=== PATIENT | male | born 1950 | race Caucasian/White ===

== ENCOUNTER → 2018-02-08 08:15 | Outpatient (CLI) | payer MEDICARE, BC, SELFPAY ==
--- NOTE | 2018-02-08 08:00 | PROSBIL_PTH ---
PATIENT: LISSETTE MESA LOC: [facility] U#:[id number] AGE/SX: 75/M ROOM: RE02/08/[address]: Dr. Nathan Garay MD : 1950 BED: DIS: SPEC #: [id number] RECD: 02/09/18 09:25 STATUS: JAMES HERIBERTO #: [id number] DAVID: 02/08/18 08:[address]: Nathan Garay DEPT: SURGICAL PATHOLOGY RECD BY: Alaina Elder ENTERED: 02/09/18 09:27 SP TYPE: PROST BX PIPE DR: Dr. Pollo Gordon MD Tissues: A - PROSTATE RIGHT B - PROSTATE RIGHT C - PROSTATE RIGHT D - PROSTATE LEFT E - PROSTATE LEFT F - PROSTATE LEFT Procedures: PROSTATE BX HEADER OPERATION: Prostate biopsy PRE-OP DIAGNOSIS: Elevated PSA TISSUE SUBMITTED: A - Right apex, B - Right mid, C - Right base, D - Left apex, E - Left mid, F - Left base MICROSCOPIC DIAGNOSIS A. Right prostate, apex, core biopsy: Prostatic tissue, negative for malignancy. Focal mild chronic inflammation. B. Right prostate, mid, core biopsy: Focal high-grade prostatic intraepithelial neoplasia (HGPIN). Focal acute and chronic inflammation. C. Right prostate, base, core biopsy: Prostatic tissue, negative for malignancy. Focal acute and chronic inflammation. D. Left prostate, apex, core biopsy: Prostatic tissue, negative for malignancy. E. Left prostate, mid, core biopsy: Prostatic tissue, negative for malignancy. F. Left prostate, base, core biopsy: Prostatic tissue, negative for malignancy. SJ:jeanine 02/10/18 MICROSCOPIC DESCRIPTION Slides are reviewed. GROSS DESCRIPTION A - Received is one container designated prostate, right apex. The specimen consists of two elongated fragments of light baker-white soft tissue measuring 1.2 and 1.5 cm in length and 0.1 cm in diameter. The specimen is totally submitted in one cassette. B - Received is one container designated prostate, right mid. The specimen consists of two elongated fragments of light baker-white soft tissue each measuring 1.5 cm in length and 0.1 cm in diameter. The specimen is totally submitted in one cassette. C - Received is one container designated prostate, right base. The specimen consists of two elongated fragments of light baker-white soft tissue each measuring 1.5 cm in length and 0.1 cm in diameter. The specimen is totally submitted in one cassette. D - Received is one container designated prostate, left apex. The specimen consists of two elongated fragments of light baker-white soft tissue each measuring 1.2 and 0.1 cm in length and 0.1 cm in diameter. The specimen is totally submitted in one cassette. E - Received is one container designated prostate, left mid. The specimen consists of one elongated fragment of light baker-white soft tissue measuring 1.2 cm in length and 0.1 cm in diameter. Also received are three smaller fragments of tissue measuring 0.2 and 0.4 cm in length and 0.1 cm in diameter. The specimen is totally submitted in one cassette. F - Received is one container designated prostate, left base. The specimen consists of three elongated fragments of light baker-white soft tissue measuring 0.3 to 1.2 cm in length and 0.1 cm in diameter. The specimen is totally submitted in one cassette. / SJ:rg 02/09/18 TC:5 CPT: G0146 ADDENDUM ADDENDUM ADDENDUM ADDENDUM ADDENDUM ADDENDUM ADDENDUM ADDENDUM ADDENDUM ADDENDUM ADDENDUM ADDENDUM ADDENDUM ADDENDUM 10/30/2020 09:31 ADDENDUM 10/30/2020 09:31 ADDENDUM 10/30/2020 09:31 ADDENDUM 10/30/2020 09:31 ADDENDUM 10/30/2020 09:31 This addendum is added to incorporate an outside pathology consultation report. The case was examined at [facility] (#[id number]) and the following diagnosis was rendered. A. Right prostate, apex, core biopsy: Benign prostate tissue. B. Right prostate, mid, core biopsy: Focal high-grade prostatic intraepithelial neoplasia. C. Right prostate, base, core biopsy: Benign prostate tissue. D. Left prostate, apex, core biopsy: Benign prostate tissue. E. Left prostate, mid, core biopsy: Benign prostate tissue. F. Left prostate, base, core biopsy: Benign prostate tissue. Please see complete above mentioned consultation report in EMR
== END ==
PROVIDERS: Family Provider Family Medicine; PCP Family Medicine; Visit Provider Urology
DX: R97.20 Elevated prostate specific antigen [PSA] (principal)
CPT/HCPCS: 88305; G0416

== ENCOUNTER → 2018-08-23 10:17 | Outpatient (CLI) | payer MEDICARE, BC, SELFPAY ==
[2018-08-23 11:44] LABS: PSA,Total- Diagnostic 7.71 ng/mL (0.0-4.0)
[2018-08-24 11:03] LABS: PSA, Free 1.14 ng/mL; PSA, Free % 17.8 % (.); PSA, Total Ultrasensitive 6.4 ng/mL (0.0-4.0)
== END ==
PROVIDERS: Family Provider Family Medicine; PCP Family Medicine; Referring Provider Urology; Visit Provider Urology
DX: R97.20 Elevated prostate specific antigen [PSA] (principal)
CPT/HCPCS: 36415; 84153; 84154

== ENCOUNTER → 2019-09-12 09:34 | Outpatient (CLI) | payer MEDICARE, BC, SELFPAY ==
[2019-09-12 11:04] LABS: PSA,Total- Diagnostic 7.14 ng/mL (0.0-4.0)
== END ==
PROVIDERS: Family Provider Family Medicine; PCP Family Medicine; Referring Provider Urology; Visit Provider Urology
DX: R97.20 Elevated prostate specific antigen [PSA] (principal)
CPT/HCPCS: 36415; 84153

== ENCOUNTER 2019-10-21 05:24 | Day surgery (SDC) | payer MEDICARE, BC, SELFPAY ==
[2019-10-20 07:58] VITALS: BP 140/86; PULSE 65; RESP 16; TEMP 36.3; O2SAT 95; BMI 34.2
--- NOTE | 2019-10-20 08:14 | SDCEKG_ITS ---
Test Reason : Blood Pressure : / mmHG Vent. Rate : 056 BPM Atrial Rate : 056 BPM P-R Int : 164 ms QRS Dur : 082 ms QT Int : 406 ms P-R-T Axes : 006 009 043 degrees QTc Int : 391 ms Sinus bradycardia Otherwise normal ECG Confirmed by FRANCISCO GILMORE, MONA ([id number]), clinical editor PINO OLIVO ([id number]) on 10/21/2019 1:17:27 PM Referred By: Nathan Garay Confirmed By:ATILIO SINGH MD
[2019-10-20 08:44] LABS: Hematocrit 42.3 % (40-54); Hemoglobin 13.9 g/dL (13.0-16.5); Mean Corp Hgb Conc 32.9 g/dL (32-36); Mean Corpuscular Volume 94.4 fL (80-94); Mean Platelet Vol. 8.6 fl (6.2-12.0); Platelet Count 254 K/mm3 (150-450); RBC Distribution Width CV 14.2 % (11.6-14.6); RBC Distribution Width SD 48.8 fl (35.1-43.9); Red Blood Count 4.48 M/mm3 (4.6-6.2); White Blood Count 6.3 K/mm3 (4.4-11.0)
[2019-10-21] VITALS (7 sets, daily range): BP systolic 128–184; BP diastolic 82–99; PULSE 62–71; RESP 14–18; TEMP 36.1–36.6; O2SAT 91–98; BMI 33.7
[2019-10-21] MEDS: Lactated Ringers 1,000 ML 100 ML IV ×3 (06:36→11:05)
[2019-10-21] MEDS: Cefazolin 2 GM in 0.9% Normal Saline 100 ML IV (07:30)
--- NOTE | 2019-10-21 07:30 | BLB_PTH ---
PATIENT: LISSETTE MESA LOC: [facility] U#:[id number] AGE/SX: 69/M ROOM: RE10/21/[address]: Dr. Nathan Garay MD : 1950 BED: DIS: 10/21/2019 SPEC #: [id number] RECD: 10/21/19 09:49 STATUS: JAMES RECorbin #: [id number] DAVID: 10/21/19 07:[address]: Nathan Garay DEPT: SURGICAL PATHOLOGY RECD BY: Chino Molina ENTERED: 10/21/19 12:02 SP TYPE: TURB OTHR DR: Dr. Pollo Gordon MD Tissues: Urinary bladder, NOS Procedures: Surgery Specimen Level V HEADER OPERATION: Cysto, transurethral resection bladder, Olympus PRE-OP DIAGNOSIS: Neoplasm of bladder; asymptomatic microscopic hematuria; benign hyperplasia, elevated PSA TISSUE SUBMITTED: Bladder tumor MICROSCOPIC DIAGNOSIS Bladder tumor, TUR: Urothelial carcinoma. See cancer summary below. 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 Muscularis propria invasion presence: Muscularis propria (detrusor muscle) is present and free of tumor. Lymphovascular invasion: Not identified Tumor extension: The tumor is suspicious for invasion into the lamina propria (subepithelial connective tissue). See comment. Additional pathologic findings: Acute and chronic inflammation and cautery artifact. The above summary is in compliance with [employer] (CAP) Cancer Protocols Checklist and [place] [employer] Committee on Cancer (AJCC), Staging Manual, 8th Ed. COMMENT The area suspicious for invasion of tumor showed marked procedure related (cautery) artifact. Case has been reviewed in consultation with Dr. Mancini who concurs with the above diagnosis. IDC:AM MICROSCOPIC DESCRIPTION Slides are reviewed. GROSS DESCRIPTION Received in fixative is one container labeled with the patient's name and designated bladder tumor. The specimen consists of multiple irregular and friable fragments of pink-baker soft tissue that in aggregate measure 2.5 x 2 x 0.2 cm. The specimen is totally submitted in one cassette. / AM:jeanine 10/21/19 TC:0 CPT: 08481
--- NOTE | 2019-10-21 07:32 | PCM.DC.URO ---
Discharge Diet: Light diet - advance as tolerated Discharge Activity: Return to Normal Activity Call your doctor if your incision/area has: Continuous Slow Oozing Call your doctor if you observe: Fever of 101 or Higher Suture Line Care: Avoid Pulling/Pushing, Avoid Pinching/Bending Instructions: Treating Bladder Cancer: TUR (Transurethral Resection), Understanding Bladder Cancer Allergies/Adverse Reactions: Allergies Penicillins [PCN] Allergy (Verified 10/20/19 07:53) Unknown Medications to take at Discharge Atorvastatin Calcium [Lipitor] 40 mg PO QHS 10/20/19 Bacillus Coagulans [Probiotic] 1 ea PO DAILY 10/20/19 Cinnamon Bark [Cinnamon] 1,000 mg PO DAILY 10/20/19 Famotidine [Pepcid] 20 mg PO DAILY 10/20/19 Folic Acid 1 mg PO DAILY 10/20/19 Methotrexate 20 mg PO Q7D 10/20/19 Multivitamin [Daily Vitamin Formula] 1 ea PO DAILY 10/20/19 [place]-3/Dha/Epa/Fish Oil [[place] 3 500 Softgel] 1 ea PO DAILY 10/20/19 Ciprofloxacin [Cipro] 500 mg PO BID #14 tab 10/21/19 Hydrocodone/Acetaminophen [[place] 5-325 Tablet] 1 each PO Q4H PRN PRN #14 tablet 10/21/19 The following prescriptions were given: Ciprofloxacin [Cipro] 500 mg PO BID #14 tab Transmission Status: Pending to [facility] Hydrocodone/Acetaminophen [[place] 5-325 Tablet] 1 each PO Q4H PRN PRN #14 tablet PRN Reason: Pain Score 1-5/10 Transmission Status: Sent to [facility] Primary Care Physician: Pollo Gordon MD [Primary Care Provider] - Test Results: Test results from this visit will be discussed in further detail at your follow-up appointment, if applicable. Please Follow Up With: Nathan Garay MD When: in 2 weeks, please call to make an appointment.
--- NOTE | 2019-10-21 08:29 | OP.PCM_ITS ---
Report of Operation Date of Procedure: 10/21/19 Pre-Operative Diagnosis: Large bladder tumor in the dome of the bladder di fficult location Post-Operative Diagnosis: Same Surgery/Procedure Performed:: Transurethral resection of a large bladder tumor and instillation of mitomycin-C Description of Surgical Findings:: 69-year-old male with a history of smoking and had microscopic hematuria cystoscopy was done demonstrated a tumor up in the dome of the bladder tumor measured about 3.5 very close to 4 cm in size fairly large tumor in the dome of the bladder. Appeared to be a invasive tumor probably would lamina propria invasion did not appear to be a muscle invasive tumor. Today we did do a complete resection of the tumor and instillation of mitomycin-C. Instead the risk of the resection is perforation the bladder injury to the bladder failure to resect the entire tumor bleeding and infection and the risk of anesthesia all questions were answered and he signed the consent form . 69-year-old male was taken back to the operating with smooth induction of general anesthesia he was placed supine on the table and then in dorsolithotomy position we made the leg sure the legs were padded properly in stirrups. The penis and testicles were prepped and draped in usual sterile fashion, I first went into the bladder with a 21 Jordanian rigid cystourethroscope the meatus was normal the entire urethra was normal the sphincter was intact the prostate had some mild bilateral hypertrophy but no significant obstruction inside the bladder identified the trigone at the identified the right ureter orifice and the left ureteral orifice both of these were uninvolved by tumor I then searched the posterior wall right wall left wall anterior wall and then up in the dome of the bladder there was a large 3.5 x 4 cm tumor and also there was a satellite tumor next this large tumor up high in the dome of the bladder. I removed the cystoscope I went back in with a 24 Jordanian noncontinuous flow Olympus resectoscope using the medium size loop I did bend the loop in order to reach the tumor at the put a lot of pressure in the patient's abdomen to push the tumor down into my resectoscope I started resecting the lower part of the tumor working my way up to the middle part of the tumor as I resected let air bubbles were forming and could not see the whole resection site so then I removed the resectoscope went back in with the cystoscope put on suction suction out the air and then looked and saw that there was still more tumor and still the satellite tumor still need to be resected. So then went back in with the resectoscope and and then use a continuous flow resectoscope this way I could irrigate also suction neck inspection of the bubbles in the dome of the bladder continued do the resection very carefully took quite some time to resect this tumor because is up in the dome of the bladder had a little bladder pressure on the patient's abdomen to get the tumor down into the resection field finally got the major tumor all resected and I cauterized the resection base then I had the reach the satellite tumor that was even further high up in the dome this required a lot of pressure pushing down on the abdomen reaching real high then she was able to get this tumor resected after resecting this and I made sure I cauterized entire area all the tumor chips were then evacuated out of the bladder and sent off as a specimen all cut up little specimens. Took a photograph of the tumor before and after resection to document. And then placed a drain the bladder made sure that there was no bleeding placed the catheter in the bladder and placed mitomycin-C into the bladder 40 mg in 40 cc of mitomycin-C was placed into the bladder for instillation dwell he will hold this 1 hour in the PACU. Cystoscope was removed the bladder was drained mitomycin-C was placed and patient anesthetic was versed he was taken back to the PACU in good condition after discharge we will follow-up in the office in about 2 weeks. Type of Anesthesia:: General Specimen's removed: bladder tumor chips Drains: none - Admit VTE Documentation VTE Present on Admission: No VTE Mechan Device Prophylaxis: SCD's
== END 2019-10-21 12:26 | disposition home or self-care (01) ==
LOC: SDC 05:25 → AC 05:25
PROVIDERS: Anesthesiology; Family Provider Family Medicine; PCP Family Medicine; Referring Provider Urology; Visit Provider Urology
PROC: 0TBB8ZZ Excision of Bladder, Via Natural or Artificial Opening Endoscopic (ICD-10-PCS; CPT 52240; principal; 2019-10-21 07:20)
DX: C67.1 Malignant neoplasm of dome of bladder (principal); N40.0 Benign prostatic hyperplasia without lower urinary tract symptoms; K21.9 Gastro-esophageal reflux disease without esophagitis; E78.00 Pure hypercholesterolemia, unspecified; E66.9 Obesity, unspecified; Z68.32 Body mass index [BMI] 32.0-32.9, adult; Z87.442 Personal history of urinary calculi; Z87.891 Personal history of nicotine dependence; Z79.899 Other long term (current) drug therapy
CPT/HCPCS: 00912; 52240; 53899; 85027; 88307; 93005; J7120; J2405; J3490; J9280

== ENCOUNTER → 2020-01-12 | Outpatient (CLI) | payer MEDICARE, SELFPAY ==
[2019-10-21 06:15] VITALS: BMI 33.7
== END | disposition home or self-care (01) ==
LOC: LABSPEC 15:27
PROVIDERS: PCP Family Medicine; Referring Provider Urology; Visit Provider Urology
DX: R30.0 Dysuria (principal)
CPT/HCPCS: 87086

== ENCOUNTER 2020-01-18 08:30 | Day surgery (SDC) | payer MEDICARE, BC, SELFPAY ==
[2019-10-21 06:15] VITALS: BMI 33.7
[2020-01-16 11:08] VITALS: BMI 33.7
--- NOTE | 2020-01-18 | BLB_PTH ---
PATIENT: LISSETTE MESA [place] [facility] [place][id number] AGE/SX: 69/M ROOM: RE01/18/[address]: Dr. Nathan Garay MD : 1950 BED: DIS: 01/18/2020 SPEC #: [id number] RECD: 01/18/20 13:16 STATUS: JAMES HERIBERTO #: [id number] DAVID: 01/18/20 00:[address]: Nathan Garay DEPT: SURGICAL PATHOLOGY RECD BY: Camron Peres ENTERED: 01/19/20 09:03 SP TYPE: TURB OTHR DR: Dr. Pollo Gordon MD Tissues: Urinary bladder, NOS Procedures: Surgery Specimen Level V HEADER OPERATION: Cysto, transurethral resection bladder, Olympus PRE-OP DIAGNOSIS: History bladder CA TISSUE SUBMITTED: Bladder tumor tissue MICROSCOPIC DIAGNOSIS Urinary bladder tumor, TUR: Focal granulation with associated acute and chronic inflammation. Abundant necrotic cellular debris with associated acute inflammation and with calcific change. See comment. AM:jeanine 01/20/20 COMMENT Viable tumor is not present in the specimen. Clinical correlation is suggested. Reference is made to the patient's previous urinary bladder TUR from 10/24/19 ([id number]) in which high-grade urothelial carcinoma was identified. Case has been reviewed in consultation with Dr. Kearney who concurs with the above diagnosis. IDC:EVELIN MICROSCOPIC DESCRIPTION Slides are reviewed. GROSS DESCRIPTION Received in fixative is one container labeled with the patient's name and designated bladder tumor tissue. The specimen consists of multiple irregular fragments of baker-brown soft tissue that in aggregate measure 2.5 x 2 x 0.3 cm. The entire specimen is submitted in one cassette. / EVELIN:jeanine 01/19/20 TC:2 CPT: 47596
--- NOTE | 2020-01-18 08:43 | EKG12_ITS ---
Test Reason : PRE-OP Blood Pressure : / mmHG Vent. Rate : 070 BPM Atrial Rate : 070 BPM P-R Int : 148 ms QRS Dur : 080 ms QT Int : 388 ms P-R-T Axes : 014 010 048 degrees QTc Int : 419 ms Normal sinus rhythm Normal ECG When compared with ECG of 20-OCT-2019 08:24, No significant change was found Confirmed by FRANCISCO GILMORE, MONA ([id number]), image editor JASWANT AQUINO ([id number]) on 01/20/2020 9:43:29 AM Referred By: Nathan Garay Confirmed By:ATILIO SINGH MD
[2020-01-18 08:55] VITALS: BP 139/88; PULSE 75; RESP 16; TEMP 36.8; O2SAT 95; BMI 31.9
[2020-01-18 09:09] LABS: Hematocrit 37.1 % (40-54); Hemoglobin 12.4 g/dL (13.0-16.5); Mean Corp Hgb Conc 33.4 g/dL (32-36); Mean Corpuscular Hgb 31.9 pg (27.0-32.0); Mean Corpuscular Volume 95.4 fL (80-94); Mean Platelet Vol. 8.3 fl (6.2-12.0); Platelet Count 178 K/mm3 (150-450); RBC Distribution Width CV 14.6 % (11.6-14.6); RBC Distribution Width SD 50.3 fl (35.1-43.9); Red Blood Count 3.89 M/mm3 (4.6-6.2); White Blood Count 5.2 K/mm3 (4.4-11.0)
[2020-01-18] MEDS: Lactated Ringers 1,000 ML 100 ML IV ×2 (09:14→12:42)
[2020-01-18] MEDS: Cefazolin 2 GM in 0.9% Normal Saline 100 ML IV (11:16)
--- NOTE | 2020-01-18 12:17 | HP.PCM_ITS ---
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 He completed the resection and 6 weeks of mitomycin-C treatment still having significant symptoms so we did a cystoscopy demonstrated what appeared to be a poorly healing area up in the dome of the bladder with original resection a lot of calcification deposits and poor healing this was concerning for either persistent disease or just poor healing. So today when taken back for re-resection of the area will set off the tissue for pathology. Also probably will do a CAT scan to further evaluate the bladder to make sure there is no deep tumor that I cannot resect. Past Medical History Allergies Penicillins [PCN] Allergy (Verified 01/16/20 11:03) Unknown aspirin Adverse Reaction (Verified 01/16/20 11:03) PT UNSURE OF REACTION Home Medications: Ambulatory Orders Medication Instructions Recorded Atorvastatin Calcium [Lipitor] 40 mg PO QHS 10/20/19 Bacillus Coagulans [Probiotic] 1 ea PO DAILY 10/20/19 Cinnamon Bark [Cinnamon] 1,000 mg PO DAILY 10/20/19 Famotidine [Pepcid] 20 mg PO DAILY PRN 10/20/19 Folic Acid 1 mg PO DAILY 10/20/19 Methotrexate 20 mg PO Q7D 10/20/19 Multivitamin [Daily Vitamin 1 ea PO DAILY 10/20/19 Formula] [place]-3/Dha/Epa/Fish Oil [[place] 3 1 ea PO DAILY 10/20/19 500 Softgel] Surgical History: no surgical history Smoking Status: Former smoker Review of Systems Constitutional: Denies: Chills, Fever, Weight Change HEENT: Denies: Head Aches, Sinus Congestion, Sinus Drainage Cardiovascular: Denies: Chest Pain, Palpitations Respiratory: Denies: Cough, Shortness of breath at rest, Sputum production Gastrointestinal: Denies: Abdominal Pain, Nausea, Vomiting Genitourinary: Denies: Dysuria Musculoskeletal: Denies: Joint Pain, Joint Tenderness Skin: Denies: Rash, Wounds Neurological: Denies: Numbness, Tingling, Focal weakness Psychiatric: Denies: Anxiety, Depression, Homicidal Ideations, Suicidal Ideations Hematologic/ Lymphatic: Denies: Easy Bruising, Easy Bleeding VTE Information - Inpt Only VTE Present on Admission: No VTE Mechan Device Prophylaxis: SCD's - Physical Exam Vitals/I&O's: Vital Signs Temp Pulse Resp BP Pulse Ox 98.2 F 75 16 139/88 H 95 01/18/20 08:55 01/18/20 08:55 01/18/20 08:55 01/18/20 08:55 01/18/20 08:55 Oxygen Delivery Method Room Air Weight: 101.06 kg Body Mass Index (BMI) 31.9 Intake and Output for Last 24 Hours 01/16/20 01/17/20 01/18/20 23:59 23:59 23:59 Intake Total 110 / 110 Balance 110 / 110 General: Alert, Oriented x3, Cooperative HEENT: Atraumatic, PERRLA, EOMI, Normocephalic Neck: Supple, No JVD, Negative Carotid Bruits Lungs: Clear to auscultation, Normal air movement Cardiovascular: Regular rate, No murmurs Abdomen: Bowel Sounds Present, Soft, Non Tender Extremities: No edema, Capillary Refill Less than 3 Seconds Skin: No rashes, No breakdown Musculoskeletal: No Tenderness to Palpation of Joints or Extremities Neurological: Cranial nerves II-XII grossly intact Psych/Mental Status: Normal Affect, Appropriate Laboratory Results 01/18/20 09:04: WBC 5.2, RBC 3.89 L, Hgb 12.4 L, Hct 37.1 L, MCV 95.4 H, MCH 31.9, MCHC 33.4, RDW Std Deviation 50.3 H, RDW Coeff of Samantha 14.6, Plt Count 178, MPV 8.3 Current Medications Lactated Ringer's () 1,000 mls @ 100 mls/hr IV .Q10H [facility] Last Admin: 01/18/20 09:14 Dose: 100 mls/hr Documented by: Assessment/Plan 69-year-old male with bladder cancer newly diagnosed in October status post resection with invasive urothelial carcinoma invading into the T1 layer status post treatment with mitomycin-C, comes back with a poorly healing area in the bladder is concerned perhaps recurrence of disease he did have high-grade disease with carcinoma in situ so we will proceed with a reresection of the area today under anesthesia will send off the tissue for pathology. Essential Procedure Criteria Procedure Essential: Yes Criteria Note: On 12/27/2019 the [place] Department of Health ([facility]) Public Order signed by [facility] Director Cathie Corbin M.D., regarding the Management of Non- Essential Surgeries and Procedures for the purpose of preserving Personal Protective Equipment (PPE) and critical hospital capacity and resources within [place] went into effect as of 12/28/2019 at 5:00PM. According to the [facility] Public Order: This action will remain in full force and effect until the State of Emergency declared by the Governor no longer exists or the Director of the [facility] rescinds or modifies this Order.. This [facility] order stated all non-essential or elective surgeries and procedures that utilize PPE should be delayed unless there is undue risk to the current or future health of a patient. After reviewing the aforementioned [facility] Public Order and the patients clinical case, I have determined that the scheduled procedure meets the criteria to go forward. Risk to Patient if Procedure Delayed: Risk of metastasis or progression of staging
--- NOTE | 2020-01-18 12:23 | PCM.DC.URO ---
Discharge Diet: Light diet - advance as tolerated Discharge Activity: Return to Normal Activity Call your doctor if your incision/area has: Sudden Increased Bleeding Call your doctor if you observe: Fever of 101 or Higher Suture Line Care: Avoid Pulling/Pushing, Avoid Pinching/Bending Allergies/Adverse Reactions: Allergies Penicillins [PCN] Allergy (Verified 01/16/20 11:03) Unknown aspirin Adverse Reaction (Verified 01/16/20 11:03) PT UNSURE OF REACTION Medications to take at Discharge Atorvastatin Calcium [Lipitor] 40 mg PO QHS 10/20/19 Bacillus Coagulans [Probiotic] 1 ea PO DAILY 10/20/19 Cinnamon Bark [Cinnamon] 1,000 mg PO DAILY 10/20/19 Famotidine [Pepcid] 20 mg PO DAILY PRN 10/20/19 Folic Acid 1 mg PO DAILY 10/20/19 Methotrexate 20 mg PO Q7D 10/20/19 Multivitamin [Daily Vitamin Formula] 1 ea PO DAILY 10/20/19 [place]-3/Dha/Epa/Fish Oil [[place] 3 500 Softgel] 1 ea PO DAILY 10/20/19 Ciprofloxacin [Cipro] 500 mg PO BID #14 tab 01/18/20 Hydrocodone/Acetaminophen [[place] 5-325 Tablet] 1 each PO Q4H PRN PRN 7 Days #14 tablet 01/18/20 Oxybutynin Chloride [Oxybutynin Chloride ER] 10 mg PO DAILY #30 tab.er.24 01/18/20 The following prescriptions were given: Ciprofloxacin [Cipro] 500 mg PO BID #14 tab Transmission Status: Pending to [facility] Hydrocodone/Acetaminophen [[place] 5-325 Tablet] 1 each PO Q4H PRN PRN 7 Days #14 tablet PRN Reason: Pain Score 1-10/10 Transmission Status: Sent to [facility] Oxybutynin Chloride [Oxybutynin Chloride ER] 10 mg PO DAILY #30 tab.er.24 Transmission Status: Pending to [facility] Primary Care Physician: Pollo Gordon MD [Primary Care Provider] - Test Results: Test results from this visit will be discussed in further detail at your follow-up appointment, if applicable. Please Follow Up With: Nathan Garay MD When: please call to make Video Appointment Follow up in 10 days
--- NOTE | 2020-01-18 12:27 | OP.PCM_ITS ---
Report of Operation Date of Procedure: 01/18/20 Pre-Operative Diagnosis: Invasive bladder cancer Post-Operative Diagnosis: Same Surgery/Procedure Performed:: Transurethral resection of bladder cancer large Description of Surgical Findings:: The 69-year-old male who was found to have bladder cancer earlier this past year he had invasive cancer with invasion into the lamina propria layer and also carcinoma in situ. He completed a resection which was at that point followed with a complete resection. And then he completed 6 weeks of mitomycin-C therapy. He came to the office because he was having a lot of difficulty with frequency urgency and pain in his bladder so on cystoscopy in the office was found to have a necrotic area in the dome of the bladder that is poorly healing with calcifications. Certainly concerning for recurrence or progression of disease. So again taken back to surgery today for reresection. Patient was taken back to the operating room at the smooth induction of anesthesia he was placed supine on the table, the penis and testicles are prepped and draped in usual sterile fashion, went into the bladder with a 21 [place] rigid cystourethroscope the bladder was identified the trigone was identified left and right ureteral orifice was normal up in the dome of the bladder there was a poorly healing area circumferential nature with yellow calcifications throughout the area that was healing. I then switched over to the Instacart resectoscope and used a cold loop to first scrape off these necrotic areas and dysmorphic calcifications. These were sent off as a specimen I then switched over to the resectoscope loop with continuous irrigation and did a reresection of the area getting tissue and this was sent off as the tissue line of the tissue appeared to be necrotic in nature but there was also some healthy tissue that was sent off. There is no perforation of the bladder. The area in the dome of the bladder just appear to be either poorly healing or there was a concern for recurrence. At the end of the resection of the large area in the dome of the bladder about 5 cm x 3 cm in size I then made sure that there was no bleeding obtain hemostasis with cautery and then drained the bladder and taken back to the PACU in good condition plan is to review the pathology report and also can repeat a CAT scan of the abdomen pelvis with IV and oral contrast to further evaluate the bladder to make sure that there is no masses in the bladder certainly it is possible he could have persistent disease he did have very high- grade disease on original resection and even though he is completed chemotherapy he may have progression we may have to consider further more aggressive treatment. This was discussed with his family and and his and he was extubated taken back to PACU in good condition and will see him back in the office to review the CAT scan and review the tissue report by video conference. Type of Anesthesia:: General Drains: none - Admit VTE Documentation VTE Present on Admission: No VTE Mechan Device Prophylaxis: SCD's
[2020-01-18 12:31] VITALS: BP 139/88; BP 154/86; PULSE 78; RESP 16; TEMP 36.6; O2SAT 92
[2020-01-18] MEDS: Ketorolac 15 MG/ML Vial IV (12:43)
[2020-01-18 12:45] VITALS: BP 139/88; BP 171/87; PULSE 68; RESP 17; O2SAT 93
[2020-01-18 12:59] VITALS: BP 139/88; BP 156/88; PULSE 69; RESP 16; TEMP 36.4; O2SAT 97
[2020-01-18 15:15] VITALS: BP 139/88; BP 163/85; PULSE 75; RESP 16; TEMP 36.4; O2SAT 98
== END 2020-01-18 15:20 | disposition home or self-care (01) ==
LOC: SDC 08:33 → AC 08:33
PROVIDERS: Anesthesiology; PCP Family Medicine; Referring Provider Urology; Visit Provider Urology
PROC: 0TBB8ZZ Excision of Bladder, Via Natural or Artificial Opening Endoscopic (ICD-10-PCS; CPT 52240; principal; 2020-01-18 10:40)
DX: N30.00 Acute cystitis without hematuria (principal); N30.20 Other chronic cystitis without hematuria; C67.1 Malignant neoplasm of dome of bladder; K21.9 Gastro-esophageal reflux disease without esophagitis; E78.00 Pure hypercholesterolemia, unspecified; Z79.899 Other long term (current) drug therapy; Z87.891 Personal history of nicotine dependence
CPT/HCPCS: 52240; 36415; 85027; 88307; 93005; J7120; J2405

== ENCOUNTER → 2020-01-24 | Outpatient (CLI) | payer MEDICARE, BC, SELFPAY ==
[2020-01-18 08:55] VITALS: BMI 31.9
--- NOTE | 2020-01-24 08:16 | CT_ITS ---
STUDY: CT ABDOMEN AND PELVIS WITHOUT CONTRAST REASON FOR EXAM: Male, 69 years old. BLADDER CANCER FOLLOW-UP. OCT 2019 REMOVAL OF BLADDER CANCER WITH CHEMO. LAST WEEK WENT IN AND SCRAPED CALCIUM OFF DURÁN OF BLADDER RADIATION DOSAGE (If Supplied By Facility): CTDIvol = ( 19.57 ) mGy, DLP = ( 2006.57 ) mGycm TECHNIQUE: Transaxial images were obtained from the dome of the diaphragm to the symphysis pubis without oral contrast, and without intravenous contrast. Sagittal and coronal images were reconstructed. Individualized dose optimization techniques were used for this CT. COMPARISON: None. FINDINGS: Calcified granuloma in the right lower lobe. Calcified right infrahilar lymph node. Coronary artery calcifications. There is a 9.3 mm hypodense nodule in the posterior aspect of the right lobe liver in its mid level. There is also evidence of a 2 cm x 2.1 cm hypodense nodule in the medial aspect of the right lobe of the liver anteriorly adjacent to the falciform ligament. This is not a typical cyst. There are surgical clips in the gallbladder fossa consistent with a prior cholecystectomy. Borderline splenomegaly. Normal pancreas. Normal bilateral adrenal glands. Right renal cysts. The largest cyst measures 2 cm x 1.7 cm. This is the anterior superior aspect of the kidney. There is a 1.2 cm cyst in the mid anterior aspect of the left kidney as well as 2 cysts in the lower pole the larger measures 3 cm. There is also evidence of a 6.4 mm cavernous in the mid pole calyx of the left kidney. Normal visualized stomach. Normal small intestine. A large amount of fecal material is seen in the right hemicolon and a moderate amount in the rectosigmoid colon. Scattered sigmoid diverticulosis. The appendix is visualized and appears normal. There is diffuse atherosclerotic calcification of the abdominal aorta. Minimal aneurysmal dilatation of the distal abdominal aorta with a transverse dimension of 3.2 cm. Mild degree of mural thrombus. Normal inferior vena cava. Normal retroperitoneum. Diffuse irregular bladder wall thickening. Calcification is seen in the anterior aspect of the bladder. A small amount of air is seen in the anterior superior aspect of the bladder suggestive of recent postoperative changes. There is evidence of a increased markings in the surrounding peritoneal fat suggestive of inflammatory changes or postoperative changes. There is enlargement of the prostate gland. The prostate measures 4.7 cm x 6.1 cm. Central calcifications are seen. There is a small umbilical hernia containing fat. Normal osseous structures. CT/Abdomen/Pelvis W IV Cont ONLY IMPRESSION: Diffuse irregular bladder wall thickening with a rim-like calcifications along its anterior superior aspect where a small amount of air is seen. This is acute with the patient''s history of recent surgical intervention. There is evidence of increased markings in the surrounding peritoneal fat. Hypodense nodule in the medial aspect of the right lobe of the liver anteriorly measuring to size by 2.1 cm as well as a hypodense nodule in the posterolateral aspect of the right lobe in its mid level measuring 9.3 mm. Bilateral renal cysts. Electronically Signed: Matthew Mendez, at 10:30 EDT , Service support ,
[2020-01-24 08:51] LABS: CREATININE FINGERSTICK 1.1 mg/dL (0.70-1.30); EGFR FINGERSTICK > 60.0000 mL/min (>60)
== END | disposition home or self-care (01) ==
LOC: CT 08:14
PROVIDERS: PCP Family Medicine; Referring Provider Urology; Visit Provider Urology
DX: C67.1 Malignant neoplasm of dome of bladder (principal)
CPT/HCPCS: 74177; Q9967

== ENCOUNTER → 2020-02-02 07:43 | Outpatient (CLI) | payer MEDICARE, BC, SELFPAY ==
[2020-01-18 08:55] VITALS: BMI 31.9
[2020-01-28 09:19] LABS: Platelet Count 202 K/mm3 (150-450)
[2020-01-28 09:31] LABS: Prothrombin Time (Protime)PT. 12.6 SECONDS (11.7-14.9)
[2020-02-02] VITALS (9 sets, daily range): BP systolic 99–146; BP diastolic 68–89; PULSE 63–75; RESP 12–18; TEMP 37.1; O2SAT 92–99; BMI 31.8
--- NOTE | 2020-02-02 | ASPIGT_PTH ---
PATIENT: LISSETTE MESA LOC: CT U#:[id number] AGE/SX: 75/M ROOM: RE02/02/[address]: Dr. Nathan Garay MD : 1950 BED: DIS: SPEC #: [id number] RECD: 02/02/20 10:29 STATUS: JAMES HERIBERTO #: [id number] DAVID: 02/02/20 00:[address]: Nathan Garay DEPT: SURGICAL PATHOLOGY RECD BY: Camron Peres ENTERED: 02/02/20 10:30 SP TYPE: ASP RAD OTHR DR: Dr. Pollo Gordon MD Tissues: Urinary bladder, NOS Procedures: FNA Specimen Adequacy Special Stain Group II Surgery Specimen Level IV Imprint (control) HEADER OPERATION: Bladder wall biopsy PRE-OP DIAGNOSIS: Bladder CA TISSUE SUBMITTED: Bladder wall biopsy MICROSCOPIC DIAGNOSIS Bladder wall, CT-guided core biopsy: Fragments of fibromuscular tissue, consistent with detrusor muscle with focal necrosis, mild chronic inflammation and reactive changes consistent with therapy-related changes. Negative for malignancy. SJ:rg 02/03/20 COMMENT The specimen is evaluated at the time of biopsy by Dr. Kearney. Immediate Evaluation = Lymphocytes and histiocytes suggestive of granuloma are noted. Negative for malignant cells. Correlation with clinical, radiologic findings and appropriate follow up are necessary. Please make reference to previous specimens ([id number]) bladder tumor, TUR with diagnosis of urothelial carcinoma and ([id number]) urinary bladder tumor, TUR with diagnosis of focal granulation with associated acute and chronic inflammation and abundant necrotic cellular debris with associated acute inflammation and calcific changes. Case has been reviewed in consultation with Dr. Mancini who concurs with the above diagnosis. IDC:AM MICROSCOPIC DESCRIPTION Slides are reviewed. GROSS DESCRIPTION Received in fixative is one container labeled with the patient's name and designated bladder biopsy. The specimen consists of multiple irregular fragments of baker soft tissue that in aggregate measure 1 x 0.3 x 0.1 cm. The specimen is totally submitted in one cassette. Three touch imprints are prepared at the time of core biopsy. / EVELIN:jeanine 02/02/20 TC:5 CPT: 74296, 11691
--- NOTE | 2020-02-02 07:46 | CT_ITS ---
PROCEDURE: CT GUIDED biopsy of the anterior urinary bladder wall DATE: February 02, 2020. INDICATION: Male, 69 years old. Bladder wall thickening. PHYSICIAN: Matthew Mendez M.D. RADIATION DOSAGE (If Supplied By Facility): CTDIvol = ( 15.5 ) mGy, DLP = ( 317.05 ) mGycm. Individualized dose optimization techniques were utilized. PROCEDURE: The risks, benefits, and alternatives to the procedure were explained to the patient. The specific risk of hemorrhage requiring further treatment or intervention was detailed and accepted. Follow-up instructions were discussed with the patient as well. Written informed consent was obtained. The patient was brought into the CT suite and placed in the supine position. . An appropriate entry site was identified. The overlying skin was prepped and draped in the usual sterile fashion. 1% lidocaine was administered subcutaneously for local anesthesia. Conscious sedation was performed. The patient received 2 mg of Versed and 50 mcg of fentanyl intravenously. Conscious sedation was started at 9:38 AM and terminated at 9:55 AM. The patient was independently monitored by the department nurse. Under CT guidance, a total of 4 passes of the anterior urinary bladder wall were performed utilizing an 18-gauge core biopsy needle The specimens were then placed in the appropriate fluid and transported to the laboratory for analysis. Hemostasis was obtained. The patient tolerated the procedure well without immediate complications. CT/Biopsy/Inj or Needle Placement IMPRESSION: Successful CT guided biopsy of the anterior urinary bladder wall, as described above. Conscious sedation protocol was followed. Electronically Signed: Matthew Mendez, at 10:20 EDT , Service support ,
[2020-02-02] MEDS: fentaNYL 100 MCG/2 ML Ampul IV (09:38)
[2020-02-02] MEDS: Midazolam 2 MG/2 ML Syringe IV (09:38)
== END ==
PROVIDERS: PCP Family Medicine; Referring Provider Urology; Visit Provider Urology
DX: Z01.812 Encounter for preprocedural laboratory examination (principal); C67.1 Malignant neoplasm of dome of bladder
CPT/HCPCS: 53899; 36415; 77012; 85049; 85610; 85730; 88172; 88305; 88313; 99156; 99157; J7040; A4216

== ENCOUNTER → 2020-08-14 | Outpatient (CLI) | payer MEDICARE, BC, SELFPAY ==
[2020-02-02 08:35] VITALS: BMI 31.8
--- NOTE | 2020-08-14 09:00 | CYSPIN_PTH ---
PATIENT: LISSETTE MESA [facility] U[id number] AGE/SX: 69/M ROOM: RE08/14/[address]: Dr. Nathan Garay MD : 1950 BED: DIS: 08/14/2020 SPEC #: [id number] RECD: 08/14/20 13:15 STATUS: JAMES HERIBERTO #: [id number] DAVID: 08/14/20 09:[address]: Nathan Garay DEPT: CYTOLOGY RECD BY: Kinga Rebollar ENTERED: 08/14/20 13:15 SP TYPE: CYSPIN FL OTHR DR: Dr. Pollo Gordon MD Tissues: Urine Procedures: Pap Stain (control) Special Stain Group II Cytospin Fluid HEADER OPERATION: Not noted PRE-OP DIAGNOSIS: Malignant neoplasm of bladder TISSUE SUBMITTED: Urine for cytology DIAGNOSIS CYTOLOGY Urine for cytology (cytospin): Rare atypical urothelial cells present. Marked inflammation. 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 CYTOLOGY STUDY Slides are reviewed. CYTOLOGY GROSS Received is 25 ml of hazy yellow fluid labeled with the patient's name and and designated per the requisition as urine. Submitted for cytology preparation. / jeanine 08/14/20 TC:? CPT: 27208
--- NOTE | 2020-08-14 09:00 | CYSPIN_PTH ---
PATIENT: LISSETTE MESA [facility] U#:[id number] AGE/SX: 69/M ROOM: RE08/14/[address]: Dr. Nathan Garay MD : 1950 BED: DIS: 08/14/2020 SPEC #: [id number] RECD: 08/14/20 13:15 STATUS: JAMES HERIBERTO #: [id number] DAVID: 08/14/20 09:[address]: Nathan Garay DEPT: CYTOLOGY RECD BY: Kinga Rebollar ENTERED: 08/14/20 13:15 SP TYPE: CYSPIN FL OTHR DR: Dr. Pollo Gordon MD Tissues: Urine Procedures: Pap Stain (control) Special Stain Group II Cytospin Fluid HEADER OPERATION: Not noted PRE-OP DIAGNOSIS: Malignant neoplasm of bladder TISSUE SUBMITTED: Urine for cytology DIAGNOSIS CYTOLOGY Urine for cytology (cytospin): Rare atypical urothelial cells present. Marked acute inflammation. 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 CYTOLOGY STUDY Slides are reviewed. CYTOLOGY GROSS Received is 25 ml of hazy yellow fluid labeled with the patient's name and and designated per the requisition as urine. Submitted for cytology preparation. / jeanine 08/14/20 TC:? CPT: 28380
[2020-08-14 12:13] LABS: Cytology, Body Fluid / CSF SEE PATHOLOGY REPORT
== END | disposition home or self-care (01) ==
LOC: LABSPEC 11:43
PROVIDERS: PCP Family Medicine; Visit Provider Urology
DX: C67.9 Malignant neoplasm of bladder, unspecified (principal)
CPT/HCPCS: 88108; 88313

== ENCOUNTER → 2020-10-09 13:28 | Outpatient (CLI) | payer MEDICARE, BC, SELFPAY ==
[2020-02-02 08:35] VITALS: BMI 31.8
--- NOTE | 2020-10-09 13:45 | CT_ITS ---
STUDY: CT ABDOMEN AND PELVIS WITH CONTRAST REASON FOR EXAM: Male, 70 years old. NEOPLASM OF THE BLADDER, TUMORS/CALCIUM REMOVED-CHEMO, CHOLECYSTECTOMY RADIATION DOSAGE (If Supplied By Facility): CTDIvol = ( 19.66 ) mGy, DLP = ( 2346.25 ) mGycm TECHNIQUE: Transaxial images were obtained from the dome of the diaphragm to the symphysis pubis without oral contrast. IV 100mL Isovue-300 was administered. Sagittal and coronal images were reconstructed. Individualized dose optimization techniques were used for this CT. COMPARISON: 01/24/2024. FINDINGS: Limited views through the lower chest show scattered small somewhat nodular focal pulmonary opacities in both lung bases worse on the right. Findings most consistent with inflammatory disease but neoplasm is not excluded. CT of the chest is recommended. Stable appearance of the liver. There is hepatomegaly. There is a lobulated 3 cm mass of the right lobe adjacent to the fissure for the falciform ligament. Probable hemangioma but this needs further evaluation with dynamic contrast CT of the liver. There are surgical clips in the gallbladder fossa consistent with a prior cholecystectomy. Normal spleen. Normal pancreas. Normal bilateral adrenal glands. No acute abnormalities of the kidneys. Stable bilateral renal cysts. Stable nonobstructing 7 mm mid left renal stone. Symmetric contrast enhancement. No hydronephrosis. Evaluation of the GI tract is limited by absence of oral contrast. Cannot exclude stomach wall thickening. No dilated loops of bowel or evidence for obstruction. Cannot exclude segmental thickening of the barron of the small or large bowel. Cannot exclude enteritis or colitis. Moderate diffuse fecal retention. Diverticulosis without definite diverticulitis. Appendix is not definitely seen. Stable heavily calcified aorta with fusiform infrarenal aneurysm measuring 3.3 cm across. Heavily calcified and tortuous iliac arteries. Normal inferior vena cava. Normal retroperitoneum. Continued abnormal bladder. Probable diffuse bladder wall thickening although the bladder is empty and therefore suboptimally evaluated. Unusual irregular hemispheric calcification of the anterior bladder wall. Correlate with any recent cystoscopies. Moderate to marked prostate enlargement. Normal abdominal wall. Normal osseous structures. CT/Abdomen/Pelvis WITH Contrast IMPRESSION: Hepatomegaly with a stable probable hemangioma but recommend confirmation with dynamic contrast CT of the liver. Stable nonobstructing stone of the mid left kidney. Stable 3.3 cm fusiform abdominal aortic aneurysm. Stable abnormal bladder with focal bladder wall calcification. Possible bladder wall thickening. Electronically Signed: Dada Corona MD at 16:08 EST , Service support ,
[2020-10-09 13:55] LABS: CREATININE FINGERSTICK 1.2 mg/dL (0.70-1.30)
[2020-10-09 13:58] LABS: Creatinine, Serum 0.89 mg/dL (0.70-1.30); EST Glomerular Filtration Rate 90 mL/min (>60); Est Glom Filt Rate - Afr Amer 108 mL/min (>60)
== END ==
PROVIDERS: PCP Family Medicine; Referring Provider Urology; Visit Provider Urology
DX: C67.1 Malignant neoplasm of dome of bladder (principal)
CPT/HCPCS: 36415; 74177; 82565; Q9967

== ENCOUNTER 2024-10-24 14:09 | Emergency (ER) | payer MEDICARE, BC, SELFPAY ==
[2024-10-24] VITALS (7 sets, daily range): BP systolic 135–220; BP diastolic 70–203; PULSE 78–98; RESP 16–20; TEMP 36–37; O2SAT 95–100; BMI 33.0
[2024-10-24 14:49] LABS: Absolute Neutrophil Count 6.9 X10^3/uL (2.0-7.7); Basophil# 0.04 X10^3/uL; Basophil% 0.5 % (0-1); Eosinophil# 0.06 X10^3/uL; Eosinophils% 0.7 % (0-5); Hematocrit 39.6 % (40-54); Hemoglobin 13.2 g/dL (13.0-16.5); Lymphocyte % 10.5 % (19-41); Mean Corp Hgb Conc 33.3 g/dL (32-36); Mean Corpuscular Volume 96.1 fL (80-94); Monocyte% 8.1 % (0-10); NRBC Flagged by Analyzer 0 % (0-5); Neutrophil # 6.85 X10^3/uL (2.7-7.7); Neutrophil % 79.6 % (47-70); Platelet Count 223 K/mm3 (150-450); RBC Distribution Width CV 15.9 % (11.6-14.6); Red Blood Count 4.12 M/mm3 (4.6-6.2); White Blood Count 8.6 K/mm3 (4.4-11.0)
[2024-10-24] MEDS: 0.9% Normal Saline (1000mL) 1,000 ML 999 ML IV (14:53)
[2024-10-24 15:02] LABS: Anion Gap 2 (5-15); BUN 23 mg/dL (7-18); BUN/Creat Ratio 17.8 RATIO (10-20); Calcium,Total 9.3 mg/dL (8.5-10.1); Chloride 104 mmol/L (98-107); Creatinine, Serum 1.29 mg/dL (0.70-1.30); EST Glomerular Filtration Rate 58 mL/min (>60); Est Glom Filt Rate - Afr Amer 70 mL/min (>60); Estimated Creatinine Clearance 61.76 ml/min; Glucose 123 mg/dL (74-106); Sodium Level 136 mmol/L (136-145)
[2024-10-24 15:04] LABS: Bacteria 0 SEEN /hpf (None Seen); Mucous, Urine 0 SEEN /hpf (<or=2+); Squamous Epithelial Cells - UA 0 SEEN /hpf (0-5)
--- NOTE | 2024-10-24 15:04 | CT_ITS ---
STUDY: CT ABDOMEN AND PELVIS WITH CONTRAST REASON FOR EXAM: Male, 74 years old. Fever, recent cystoscopy RADIATION DOSAGE (If Supplied By Facility): CTDIvol = ( 16.50 ) mGy, DLP = ( 1323.33 ) mGycm TECHNIQUE: Transaxial images were obtained from the dome of the diaphragm to the symphysis pubis without oral contrast. IV 100mL Isovue-300 was administered. Sagittal and coronal images were reconstructed. Individualized dose optimization techniques were used for this CT. COMPARISON: Comparison is made with prior study dated October 09, 2020. FINDINGS: Calcified granuloma in the right lower lobe. Coronary artery calcification. There is decreased attenuation of the liver consistent with steatosis. There are surgical clips in the gallbladder fossa consistent with a prior cholecystectomy. Normal spleen. Normal pancreas. Normal bilateral adrenal glands. Bilateral renal cysts. Tiny nonobstructive calculus in the upper pole calyx of the right kidney. Bilateral hydronephrosis and hydroureter more prominent on the right side. Normal visualized stomach. Normal small intestine. There are multiple colonic diverticula consistent with diverticulosis. The appendix is visualized and appears normal. There is diffuse atherosclerotic calcification of the abdominal aorta. Infrarenal abdominal aortic aneurysm with a transverse dimension of 3.8 cm. Neural thrombus is seen. Normal inferior vena cava. Normal retroperitoneum. Diffuse bladder wall thickening. There is increased markings in the surrounding fat around the urinary bladder. Inflammatory changes should be ruled out. Heterogeneous enlargement of the prostate with indentation at the bladder base. Normal abdominal wall. There are degenerative changes of the visualized lumbar spine. CT/Abdomen/Pelvis W IV Cont ONLY IMPRESSION: Bilateral hydronephrosis and hydroureter down to the bladder was on the right side with diffuse bladder wall thickening and increased inflammatory changes surrounding the bladder. Cystitis should BE ruled out. Bilateral renal cysts. Tiny nonobstructive calculus in the right kidney. Electronically Signed: Matthew Mendez MD at 15:20 EST ,
[2024-10-24 15:17] LABS: Color, Urine Brown (Yellow); Glucose, Dipstick Normal (Normal); Ketone-Dipstick Negative (Negative); Leukocyte Esterase-Dipstick 100 /ul (Negative); Nitrite-Dipstick Negative (Negative); Occult Blood-Urine 250 /ul (Negative); Protein-Dipstick 500 mg/dl (Negative); Urine Bilirubin Dipstick Negative (Negative); Urine Clarity Turbid (Clear); Urine Urobilinogen Normal (Normal); Urine pH 6.5 (5.0 - 8.0)
[2024-10-24 15:24] LABS: Red Blood Cells-Urine > 100 SEEN /hpf (0-5)
[2024-10-24 15:25] LABS: White Blood Cells 25-50 SEEN /hpf (0-5)
--- NOTE | 2024-10-24 15:46 | EX.ED.DYSGE1 ---
HPI History of Present Illness Chief Complaint: Complaint Narrative Narrative: Chief complaint and HPI: Hematuria. 74-year-old male with past medical history of bladder cancer in remission, rheumatoid arthritis on methotrexate presents for evaluation of hematuria patient states every 6 months he gets cystoscopy with urology. He states he follows with Dr. Church at [facility]. Patient states he had a routine cystoscopy on . He states on Thursday he developed hematuria and urinary retention. He was seen at an outside emergency department where urinary retention resolved but hematuria continued. ED physician offered Sidhu placement but patient declined. Patient was told to follow-up with his urologist. Patient states his hematuria has been intermittently improving as well as worsening throughout the weekend. He denies any current urinary retention. He states he has been having intermittent fevers and chills. He denies any shortness of breath, chest pain, abdominal pain, nausea, vomiting, dysuria. Review of systems: See HPI Medications: As listed on the chart Allergies: As listed on the chart PFSH: Per chart Vital signs: As listed on the chart. Reviewed. Physical exam: Gen: A&O x3, NAD Head: Normocephalic, atraumatic Eyes: No sclera icterus, conjunctiva clear ENT: Moist mucous membranes Neck: Trachea midline, No JVD CV: RRR, no murmurs, no peripheral edema Resp: Lungs CTA BL, no w/r/c GI: Abd soft, non-distended, non-tender, no r/r/g : Circumcised penis. No penile tenderness or discharge. No penile or testicular swelling. Normal lie and position of the testicles. No testicular tenderness, masses, or skin changes. Cremasteric reflexes intact and equal bilaterally. No rashes. No palpable hernias. Bloody urine in cup. Musc: Full ROM, no deformity Skin: Warm, dry Neuro: Alert, oriented, grossly intact, sensation intact Psych: Cooperative, appropriate mood and affect [facility] Medical History (Updated 10/24/24 @ 14:46 by Tasha Dean) Rheumatoid arthritis High cholesterol Enlarged prostate GERD (gastroesophageal reflux disease) Bladder cancer Home Medications ?Medication ?Instructions ?Recorded ?Last Taken ?Type atorvastatin 40 mg tablet 40 mg PO QHS 10/20/19 Unknown History folic acid 1 mg tablet 1 mg PO DAILY 10/20/19 Unknown History methotrexate sodium 2.5 mg tablet 20 mg PO Q7D 10/20/19 Unknown History multivitamin 2 ea PO DAILY 10/20/19 Unknown History omega 7-xca-deb-fish oil 500 mg 1 ea PO DAILY 10/20/19 Unknown History (200mg-300mg)-1,000 mg capsule acetaminophen 500 mg tablet 500 mg PO DAILY PRN Pain Or Fever 02/02/20 Unknown History alfuzosin 10 mg tablet,extended 10 mg PO DAILY 02/02/20 Unknown History release 24 hr famotidine-Ca carb-mag hydrox 10 1 tab PO DAILY 10/24/24 Unknown History mg-800 mg-165 mg chewable tablet (Pepcid Complete) solifenacin 5 mg tablet 5 mg PO DAILY 10/24/24 Unknown History Allergy/AdvReac Type Severity Reaction Status Date / Time aspirin AdvReac PT UNSURE Verified 01/16/20 11:03 OF REACTION Social History Smoking Status: Former smoker EXAM Physical Exam Const Vital Signs: 10/24/24 14:10 10/24/24 14:47 10/24/24 15:09 Temperature 96.8 F L Temperature Source Temporal Pulse Rate 98 87 78 Respiratory Rate 20 H 18 17 Blood Pressure 220/203 H 135/72 H 142/70 H Blood Pressure Mean 208 93 94 Pulse Ox 100 97 96 Oxygen Delivery Method Room Air Room Air Room Air 10/24/24 16:00 10/24/24 17:00 Temperature Temperature Source Pulse Rate 79 80 Respiratory Rate 17 18 Blood Pressure 137/74 H 152/70 H Blood Pressure Mean 95 97 Pulse Ox 95 97 Oxygen Delivery Method Room Air Room Air MDM MDM MDM Narrative Medical decision making narrative: 74-year-old male with past medical history of bladder cancer in remission, rheumatoid arthritis on methotrexate presents for evaluation of hematuria patient states every 6 months he gets cystoscopy with urology. Differential diagnosis includes but is not limited to UTI, pyelonephritis, hematuria, urinary retention, electrolyte abnormality, abscess. NS bolus ordered with abdominal pain workup with CT abdomen pelvis. Patient was bladder scanned and postvoid residual less than 200. Patient not retaining. CBC without leukocytosis or anemia. BMP shows creatinine of 1.29. Although this is normal, this is up-trending from 10/09 at 0.89. UA is positive for blood as well as leuk esterase and WBCs. Negative nitrates, bacteria. Concerning for UTI. Culture sent and Rocephin ordered. CT abdomen pelvis shows bilateral hydronephrosis and hydroureter down to the bladder with diffuse bladder wall thickening. Increased inflammatory changes surrounding the bladder. Bilateral renal cyst. Tiny nonobstructing calculus in the right kidney. Given findings, patient urologist Dr. Church was consulted. I spoke with on-call provider for Dr. Church, Dr. Abreu he reviewed patient's previous CT abdomen pelvis from their office. Similar findings were on that CT abdomen pelvis. Suspect that bilateral hydronephrosis and hydroureter as well as wall thickening is chronic. Agrees with urine culture and treating for possible cystitis. After reviewing outpatient urine cultures by Dr. Abreu, he agrees with 1 week of Levaquin. Drink plenty of fluids. He recommended voiding every 3 hours whether patient needs to void or not. Urinate, count to 10, and then urinate again to decrease chances of any urinary retention or blood clots. Agrees with discharge home. Immediately after talking to Dr. Abreu. Dr. Church called back and patient was discussed with him. He agrees with the previous plan. Follow-up with urology. Return precautions explained. Patient and are updated of all results and confirmed understand the plan. Patient stable to discharge home. Impression: 1. Hematuria without retention 2. Recent cystoscopy 3. Cystitis Lab Data Labs: Laboratory Results - last 24 hr 10/24/24 10/24/24 14:30 14:50 WBC 8.6 RBC 4.12 L Hgb 13.2 Hct 39.6 L MCV 96.1 H MCH 32.0 MCHC 33.3 RDW Std Deviation 56.0 H RDW Coeff of Samantha 15.9 H Plt Count 223 MPV 9.0 Immature Gran % (Auto) 0.600 Neut % (Auto) 79.6 H Lymph % (Auto) 10.5 L [place] % (Auto) 8.1 Eos % (Auto) 0.7 Baso % (Auto) 0.5 Absolute Neuts (auto) 6.9 Absolute Lymphs (auto) 0.90 Nucleated RBC % 0 Sodium 136 Potassium 4.0 Chloride 104 Carbon Dioxide 29.0 Anion Gap 2 L BUN 23 H Creatinine 1.29 Estim Creat Clear Calc 61.76 Est GFR (MDRD) Af Amer 70 Est GFR (MDRD) Non-Af 58 L BUN/Creatinine Ratio 17.8 Glucose 123 H Calcium 9.3 Urine Color Brown Urine Clarity Turbid Urine pH 6.5 Ur Specific [place] 1.020 Urine Protein 500 H Urine Glucose (UA) Normal Urine Ketones Negative Urine Occult Blood 250 H Urine Nitrite Negative Urine Bilirubin Negative Urine Urobilinogen Normal Ur Leukocyte Esterase 100 H Urine RBC > 100 SEEN Urine WBC 25-50 SEEN Ur Squamous Epith Cells 0 SEEN Urine Bacteria 0 SEEN Urine Mucus 0 SEEN Radiography Diagnostic Testing: Clinical Impression(s) from Imaging Studies Abdomen/Pelvis CT 10/24/24 15:04 IMPRESSION: Bilateral hydronephrosis and hydroureter down to the bladder was on the right side with diffuse bladder wall thickening and increased inflammatory changes surrounding the bladder. Cystitis should BE ruled out. Bilateral renal cysts. Tiny nonobstructive calculus in the right kidney. Electronically Signed: Matthew Mendez MD at 15:20 EST , Discharge Plan Triage Chief Complaint: Complaint ED Provider: Zhang Kwok Dx/Rx/DC Orders Prescriptions: No Action multivitamin 1 EACH tablet 2 ea PO DAILY atorvastatin 40 MG tablet 40 mg PO QHS methotrexate sodium 2.5 MG tablet 20 mg PO Q7D Patient Comments: TAKES ON TUESDAYS folic acid 1 MG tablet 1 mg PO DAILY omega 6-aig-cvx-fish oil 1 EACH capsule 1 ea PO DAILY alfuzosin 10 MG tablet extended release 24 hr 10 mg PO DAILY acetaminophen 500 MG tablet 500 mg PO DAILY PRN (Reason: Pain Or Fever) solifenacin 5 mg tablet 5 mg PO DAILY Pepcid Complete 10-800-165 mg tablet,chewable 1 tab PO DAILY Primary Care Provider: Pollo Gordon Referrals: Pollo Gordon MD [Primary Care Provider] - Print Language: Romansh
[2024-10-24] MEDS: Ceftriaxone 1 GM/50 ML BAG IV (15:52)
== END 2024-10-24 18:02 | disposition home or self-care (01) ==
PROVIDERS: Emergency Provider Surgery; PCP Family Medicine; Visit Provider Surgery
DX: N30.91 Cystitis, unspecified with hematuria (principal); M06.9 Rheumatoid arthritis, unspecified; N13.2 Hydronephrosis with renal and ureteral calculous obstruction; N13.4 Hydroureter; N28.1 Cyst of kidney, acquired; K21.9 Gastro-esophageal reflux disease without esophagitis; N40.0 Benign prostatic hyperplasia without lower urinary tract symptoms; E78.00 Pure hypercholesterolemia, unspecified; Z85.51 Personal history of malignant neoplasm of bladder; Z79.899 Other long term (current) drug therapy; Z87.891 Personal history of nicotine dependence
CPT/HCPCS: 74177; 80048; 81001; 85025; 87077; 87086; 87088; 87186; 96361; 96365; 99283; Q9967; A4216